=== PATIENT | female | born 1990 | race African-American/Black ===

== ENCOUNTER 2016-05-30 18:08 | Emergency (ER) | payer MEDICAID ==
[2016-05-30] MEDS ORDERED: ONDANSETRON 4 MG VIAL ONE (20:32)
[2016-05-30] MEDS ORDERED: FAMOTIDINE 20 MG INJ ONE (20:32)
[2016-05-30] MEDS ORDERED: SODIUM CHLORIDE 0.9% 1,000 ML ONE (20:32)
[2016-05-30] MEDS ORDERED: CEFTRIAXONE 1 GM VIAL ONE (20:58)
[2016-05-30] MEDS ORDERED: SODIUM CHLORIDE 0.9% 100 ML IV ONE (20:58)
== END 2016-05-30 23:27 | disposition home or self-care (01) ==
LOC: ER 18:08
DX: K29.00 Acute gastritis without bleeding (principal); K92.1 Melena; N30.00 Acute cystitis without hematuria
CPT/HCPCS: 36415; 74000; 76705; 80053; 81001; 82274; 83690; 84703; 85025; 86677; 87088; 96361; 96365; 96375